=== PATIENT | male | born 1940 | race Caucasian/White ===

== ENCOUNTER 2017-02-10 02:58 | Emergency (ER) | payer MEDICARE, OTHER ==
[~2017-02-10 02:58] MED LIST: ASA CHILDREN'S81 MG PO; COLACE-DPS100 MG PO; DULCOLAX-DPS10 MG PR; FLEXERIL DPS5 MG PO; GENTEAL GEL DRO15 ML OU; GLUCOSAMINE CH1 EAC1 PO; GLUCOSAMINE HC500 MG PO; HYDRODIURIL-DPS25 MG PO; KLOR-CON M2020 ME1 PO; LASIX DPS40 MG PO; MAALOX DPS30 ML PO; MICRO-K DPS10 MEQ PO; MILK OF MAGNESI10 ML PO; MIRALAX DPS17 GM PO; NASAREL NASAL S25 ML NS; NEURONTIN DPS100 MG PO; NEURONTIN DPS600 MG PO; NORVASC DPS10 MG PO; PERCOCET 7.5 DP1 TAB PO; SENOKOT S1 TAB PO; SPIRIVA18 MCG IH; THERA1 EACH PO; TYLENOL DPS325 MG PO; ULTRAM DPS50 MG PO; VALIUM-DPS5 MG PO; VITAMIN D1000 UNI1 PO; ZESTRIL DPS10 MG PO; ZOCOR DPS40 MG PO
--- NOTE | 2017-02-18 07:32 | ER ---
ADMIT: 02/10/2017 RM/LOC: ER [facility] MR#: [id number] [address] [address] GUY DE DIOS Ailyn [address] [place] [id number] *[facility] Emergency Room Report SEX: M AGE: 76 : 1940 DATE: 02/10/2017 CHIEF COMPLAINT: Unable to urinate and Hendrickson catheter issue. HISTORY OF PRESENT ILLNESS: The patient is a 76-year-old male, who 1 week ago had a biopsy done and removal of a small tumor on his bladder at [facility]. He was in the hospital for 2 days and went home with a Hendrickson. He had not had any difficulties until today when he was not able to get urine to drain out in his Hendrickson catheter and started having some urine draining around the Hendrickson. He did start to developing pain in his lower abdomen and was brought in by EMS for evaluation. He denies any fevers, chills, nausea, or vomiting. PAST MEDICAL HISTORY: Significant for diabetes, hypertension, COPD, and recent diagnosis of bladder tumor/lesion. MEDICATIONS: See nurse's note. ALLERGIES: SEE NURSE'S NOTE. SOCIAL HISTORY: Denies smoking or drug use. PHYSICAL EXAMINATION: See T-sheet. EMERGENCY DEPARTMENT COURSE: The patient presents, he is uncomfortable. We went ahead and got a bladder scan, it was nearly 500 mL in his bladder. As he was leaking around the catheter, we decided to remove the catheter he had and replace it with a new one that was slightly larger. When the Hendrickson was replaced, he got good drainage from his bladder and a repeat bladder scan revealed there was no residual urine in his bladder. The patient was feeling much better and he is discharged home to follow up as scheduled with the [facility]. He was given a refill of some [place] for his pain as he is out at this time. DIAGNOSIS: Urinary retention. Clemente Hutson MD/ jonathan JOB #: [id number] CC: Clemente Hutson MD, Attending Physician
[2017-03-22] MEDS ORDERED: TYLENOL DPS325 MG PO (16:41)
[2017-03-22] MEDS ORDERED: NORVASC DPS10 MG PO (16:41)
[2017-03-22] MEDS ORDERED: ZYRTEC DPS10 MG PO (16:42)
[2017-03-22] MEDS ORDERED: SENOKOT S1 TAB PO (16:42)
[2017-03-22] MEDS ORDERED: ARTIFICIAL TEAR15 M5 OU (16:42)
[2017-03-22] MEDS ORDERED: FLUOCINONIDE15 GM TP (16:43)
[2017-03-22] MEDS ORDERED: LASIX DPS40 MG PO (16:44)
[2017-03-22] MEDS ORDERED: FLONASE 0.05% D16 GM NS (16:44)
[2017-03-22] MEDS ORDERED: NORCO 5-325 TA1 EACH PO (16:45)
[2017-03-22] MEDS ORDERED: HYDROCHLOROTHIA25 MG PO (16:45)
[2017-03-22] MEDS ORDERED: ZESTRIL DPS20 MG PO (16:45)
[2017-03-22] MEDS ORDERED: KLOR-CON M2020 ME1 PO (16:45)
[2017-03-22] MEDS ORDERED: REVATIO20 MG PO (16:46)
[2017-03-22] MEDS ORDERED: SPIRIVA18 MCG IH (16:47)
[2017-03-22] MEDS ORDERED: SILVADENE DPS50 GM TP (16:47)
[2017-03-22] MEDS ORDERED: ZOCOR DPS20 MG PO (16:47)
[2017-03-22] MEDS ORDERED: CIPRO DPS500 MG PO (16:47)
== END 2017-02-10 05:40 | disposition home or self-care (01) ==
LOC: ER 02:58
PROC: 0T9B70Z Drainage of Bladder with Drainage Device, Via Natural or Artificial Opening (ICD-10-PCS; principal; 2017-02-10)
PROC: BT20ZZZ Computerized Tomography (CT Scan) of Bladder (ICD-10-PCS; principal; 2017-02-10)
DX: R33.9 Retention of urine, unspecified (principal); I10 Essential (primary) hypertension; E11.9 Type 2 diabetes mellitus without complications; Z79.82 Long term (current) use of aspirin; Z79.899 Other long term (current) drug therapy

== ENCOUNTER 2017-03-19 17:51 | Observation (INO) | payer MEDICARE ==
[~2017-03-19] VITALS: Ht 167.6 cm; Wt 123.0 kg
--- NOTE | ~2017-03-19 | HP ---
ADMIT: 03/19/2017 RM/LOC: [address] [facility] MR#: [id number] [facility]#: [id number] 2620 [facility] [address] [place] [id number] [place] [address] Pre-OP History and Physical SEX: M AGE: 76 : 1940 DATE OF SERVICE: 03/20/2017 HISTORY OF PRESENT ILLNESS: A 76-year-old gentleman underwent transurethral resection of bladder tumor at the [facility] in [place] and on the 24 of January. Approximately 2 weeks ago, he underwent followup cystoscopy, which he reports as normal. Last evening, he developed a gross painless hematuria, which worsened to the point, where he presented to the emergency room for evaluation. A Hendrickson catheter was inserted at that time. Using a 20-Indonesian 3- way and the bladder was attempted to be irrigated without success. He was admitted for control of his gross hematuria. In the emergency room, he recommended removal of his 20-Indonesian with replacement of a 24-Indonesian 30 mL 3- way Hendrickson catheter. However, the patient refused this. He has no history of voiding dysfunction and denies any fever or chills. No recurrent urinary tract infections. He is admitted for clot retention. MEDICATIONS: 1. Aspirin 325 mg q.i.d. 2. Amlodipine 10 mg daily. 3. Dextran eyedrops. 4. Fluocinonide 0.5% b.i.d. topical. 5. Lasix 40 mg daily. 6. Hydrochlorothiazide 25 mg daily. 7. Lisinopril 20 mg daily. 8. Potassium chloride 20 mEq daily. 9. Cialis 50 mg p.r.n. 10.Silver sulfadiazine cream p.r.n. 11.Simvastatin 20 mg daily. ALLERGIES: NONE. OPERATIONS: As previously stated. REVIEW OF SYSTEMS: He does have a history of essential hypertension, hyperlipidemia. FAMILY HISTORY: Negative for urologic problems. SOCIAL HISTORY: He does not smoke. PHYSICAL EXAMINATION: GENERAL: This is a 76-year-old, obese male in moderate distress. He is oriented x3. HEENT: Unremarkable. NECK: Supple without adenopathy. ADMIT: 03/19/2017 RM/LOC: [facility] [facility] MR#: [id number] [address] [address] [place] [address] Pre-OP History and Physical SEX: M AGE: 76 : 1940 CHEST: Clear to auscultation and percussion. HEART: Regular rate and rhythm. ABDOMEN: Soft with tenderness in the suprapubic region without guarding or rigidity. No masses were noted. EXTREMITIES: Full range of motion without deformity. NEUROLOGICAL: He is grossly intact. Does have an indwelling Hendrickson catheter with grossly bloody urine. ASSESSMENT: Gross hematuria, status post transurethral resection of prostate with clot retention. PLAN: Cystoscopy with clot evacuation and bladder fulguration. Vicente Sanon MD/ jonathan JOB #: [id number] CC: Vicente Sanon MD, Attending Physician [facility] Physician, Family Physician
--- NOTE | ~2017-03-19 | OR ---
ADMIT: 03/19/2017 RM/LOC: 622 [facility] MR#: [id number] [facility]#: [id number] [address] [address] DE DIOSGUY [address] [place] [id number] Operative/Delivery Room Report SEX: M AGE: 76 : 1940 SURGERY DATE: 03/20/2017 SURGEON: Vicente Sanon MD PREOPERATIVE DIAGNOSIS: Clot retention. POSTOPERATIVE DIAGNOSIS: Clot retention. OPERATION: Cystoscopy with evacuation of a clot. ANESTHETIC: General. INDICATION FOR PROCEDURE: This 76-year-old gentleman had developed a clot retention following transurethral resection of bladder tumor at the [facility]. He is admitted now for clot evacuation. DESCRIPTION OF OPERATION: After suitable general endotracheal anesthetic was obtained, the patient was placed in the dorsal lithotomy position with his genitalia and surrounding skin prepped and draped in usual sterile fashion. The 28-Thai resectoscope sheath with [place] obturator was inserted into the bladder and [place] obturator removed. With use of the Ellik evacuator, the bladder was irrigated free of all clot. The resectoscope was then introduced into the bladder; however, due to the patient's body habitus, the scope could only be advanced just beyond the bladder neck. Visualization was poor but at this point, no obvious bleeding points were identified. We did not have a longer scope to make visualization and access to the bladder better. At this point, the scope was removed and a #24-Thai, 30 mL, three- way Hendrickson catheter was inserted into the bladder and connected to continuous bladder irrigation. The patient having tolerated the procedure, was then taken to the recovery room in satisfactory condition. Vicente Sanon MD/ jonathan JOB #: [id number] CC: Vicente Sanon MD, Attending Physician . [facility]
[2017-03-22] MEDS ORDERED: TYLENOL DPS325 MG PO (16:41)
[2017-03-22] MEDS ORDERED: NORVASC DPS10 MG PO (16:41)
[2017-03-22] MEDS ORDERED: ZYRTEC DPS10 MG PO (16:42)
[2017-03-22] MEDS ORDERED: SENOKOT S1 TAB PO (16:42)
[2017-03-22] MEDS ORDERED: ARTIFICIAL TEAR15 M5 OU (16:42)
[2017-03-22] MEDS ORDERED: FLUOCINONIDE15 GM TP (16:43)
[2017-03-22] MEDS ORDERED: LASIX DPS40 MG PO (16:44)
[2017-03-22] MEDS ORDERED: FLONASE 0.05% D16 GM NS (16:44)
[2017-03-22] MEDS ORDERED: KLOR-CON M2020 ME1 PO (16:45)
[2017-03-22] MEDS ORDERED: ZESTRIL DPS20 MG PO (16:45)
[2017-03-22] MEDS ORDERED: HYDROCHLOROTHIA25 MG PO (16:45)
[2017-03-22] MEDS ORDERED: NORCO 5-325 TA1 EACH PO (16:45)
[2017-03-22] MEDS ORDERED: REVATIO20 MG PO (16:46)
[2017-03-22] MEDS ORDERED: SPIRIVA18 MCG IH (16:47)
[2017-03-22] MEDS ORDERED: ZOCOR DPS20 MG PO (16:47)
[2017-03-22] MEDS ORDERED: CIPRO DPS500 MG PO (16:47)
[2017-03-22] MEDS ORDERED: SILVADENE DPS50 GM TP (16:47)
--- NOTE | 2017-03-25 08:46 | ER ---
ADMIT: 03/19/2017 RM/LOC: ER [facility] MR#: [id number] [address] [address] GUY DE DIOS [address] [place] [id number] *[facility] Emergency Room Report SEX: M AGE: 76 : 1940 DATE: 03/19/2017 HISTORY OF PRESENT ILLNESS: A 76-year-old gentleman who comes to the Emergency Department with inability to urinate. Apparently, he has had a bladder tumor removed on 06 February of this year. Was doing well. Had a repeat cystoscopy about 4 weeks ago that went well until several hours prior to his ER presentation. Could not urinate. Initial bladder scan revealed 374 mL of urine. was placed with irrigation. It was bloody. At the time of this dictation, 14 L through the irrigation. It remains with bloody urine, although it has cleared somewhat. CBC was within normal limits. UA showed 1790 live RBCs, 587 WBC's. Did attempt to transfer this gentleman to the [facility]; however, they are on diversion. I spoke with Dr. Sanon, who agreed to admit the patient overnight. ADMISSION DIAGNOSIS: Acute urinary retention. Henry Mckeon MD/ jonathan JOB #: [id number] CC: Chris Chavarria MD, Attending Physician [facility] Physician, Family Physician
--- NOTE | 2017-03-29 07:00 | DS ---
ADMIT: 03/19/2017 RM/LOC: 622 [facility] MR#: [id number] [facility]#: [id number] [address] [address] [facility] [place] [address] Discharge Summary SEX: M AGE: 76 : 1940 ADMISSION DATE: 03/19/2017 DISCHARGE DATE: 03/21/2017 DISCHARGE DIAGNOSIS: Gross hematuria, status post transurethral resection of bladder tumor. PROCEDURES: 03/20/2017, cystoscopy with clot evacuation. BRIEF HISTORY: This 76-year-old gentleman underwent transurethral resection of bladder tumor at the [facility] in [place] on the 24 of January. Approximately two weeks ago, he underwent cystoscopy, which was reported as normal. The evening prior to admission, he developed gross painless hematuria, which worsened to the point where he presented to the Emergency Room for evaluation. A Hendrickson catheter was inserted at that time using a #20-[place]an three way with the bladder being attempted to be irrigated without success. The patient did refuse replacement of his Hendrickson catheter to a larger 24-[place]. The Hendrickson catheter did clot off, and he is admitted now for treatment. LABORATORY DATA: CBC showed a white count of 12,700 and hematocrit of 41.0. COURSE IN THE HOSPITAL: The patient was admitted with diagnosis of gross hematuria. He was admitted with a 20-[place] Hendrickson catheter, which was placed to continuous bladder irrigation. He refused to have a larger catheter inserted and a smaller catheter did clot off. A #24-[place], 30 mL, three-way Hendrickson catheter was then placed, but the bladder was unable to be irrigated free of any clot. Because of this, the patient was taken to the operating room where he underwent cystoscopy and clot evacuation. Following the clot evacuation, his urine remained clear with continuous bladder irrigation. No definitive bleeding points were noted within the bladder; however, due to the patient's body habitus, as he is quite obese, the scope was unable to be advanced into the bladder and only up to the bladder neck. No obvious visible bleeding points were identified. The continuous bladder irrigation was discontinued later the day of operation and his urine remained clear. On his first postoperative day, the Hendrickson was removed at which time, he was able to void without difficulty and was discharged from the hospital. He is to return to the office in two weeks for follow-up urinalysis. His discharge medications include those which he was taking prior to this hospitalization. In addition, Cipro 500 mg twice a day for ten days. He was instructed on increased fluid intake with no special diet given. Vicente Sanon MD/ maverick JOB #: [id number] CC: Jerson Sanon, Attending Physician [facility] Physician, Family Physician
== END 2017-03-21 11:05 | disposition home or self-care (01) ==
LOC: ER 17:51 → 3ICU 22:00 → 6PED 22:00
PROVIDERS: ADMIT Specialist
PROC: 0TCB8ZZ Extirpation of Matter from Bladder, Via Natural or Artificial Opening Endoscopic (ICD-10-PCS; principal; 2017-03-20)
DX: N32.89 Other specified disorders of bladder (principal); J44.9 Chronic obstructive pulmonary disease, unspecified; G47.30 Sleep apnea, unspecified; I10 Essential (primary) hypertension; E66.01 Morbid (severe) obesity due to excess calories; E11.9 Type 2 diabetes mellitus without complications; Z79.899 Other long term (current) drug therapy; Z98.890 Other specified postprocedural states